=== PATIENT | female | born 1965 | race Caucasian/White ===

== ENCOUNTER 2024-04-07 14:12 | Outpatient (AMB) | payer MEDICAID, SELFPAY ==
--- NOTE | 2024-04-07 14:14 | A.OFFVIS_ITS ---
Vital Signs 04/07/24 14:16 Height 5 ft 7 in Weight 114 lb 3.191 oz BMI 17.9 BP 140/90 H Blood Pressure Location Rt brachial Position Sitting Pulse 89 Pulse Oximetry (%) 98 Intake Visit Reasons: Raynauds Intake Note: New patient, externally referred by Dr. Mack Juan, presents today for Raynaud's evaluation. Accompanied by: Self / Same As Patient HPI Comments Details: Ms. Valdovinos 58yoF presents for evaluation of chronic pain and Raynaud's. The patient says she has been having chronic pain to multiple joints for many years. She says she has been diagnosed and treated for fibromyalgia. She takes the medication but she always have the pain. --mom may have had Raynaud --dx poor circulation --arthritis, prolonged morning stiffness - cant' write , crotchet, sew anymore; feet is burning and stiff; movement causes cramping with stiffness ; denies swelling, redness and warmth. --has fibromyalgia --Medications amitriptyline, escitalopram, gabapentin 800 mg t.i.d., hydroxyzine, lidocaine 5% 2 patches, methocarbamol 500 mg bedtime, naproxen 500 mg b.i.d., tramadol 50 mg q.d. as needed --severe scoliosis --tips of finger gets blue when cold and feet gets 'discloured' --feels thirsty all the time; needs to moisten dry food. keeps water at bedside at night, On pepcid --eyes feel scratchy - three to four times per day eye drops; no mouth sores, fever, rashes, sun sensitivity. FOR[facility], [facility] Medical History (Updated 04/24/24 @ 12:[address] [facility]) Raynaud's syndrome Pain in joint involving multiple sites Irritable bowel syndrome with constipation Cervicalgia Essential (primary) hypertension Vitamin D deficiency, unspecified Polyneuropathy in diseases classified elsewhere Primary Raynaud's phenomenon Body mass index [BMI] 19.9 or less, adult Chronic pain syndrome History of incarceration Anxiety Depression PTSD (post-traumatic stress disorder) Suicide attempt Surgical History (Updated 03/31/24 @ 14:45 by JOSE J Pineda) History of surgical procedure on mouth Family History (Updated 04/07/24 @ 14:21 by JOSE J Pineda) Mother Heart problem High cholesterol Raynauds disease Arthritis Father No problems noted. Other Alcoholism Social History (Updated 04/07/24 @ 14:21 by JOSE J Pineda) Alcohol intake: current Alcohol intake frequency: former alcohol drinker Patient Tobacco Use Status: Never used Tobacco Current occupational status: disabled Review of Systems Const All systems reviewed & are unremarkable except as noted in HPI and below Physical Exam Vital Signs: Last Vital Signs Pulse 89 04/07/24 14:16 BP 140/90 H 04/07/24 14:16 Pulse Ox 98 04/07/24 14:16 BMI result Body Mass Index 17.9 Vital signs reviewed. Constitutional: Non-toxic appearing. No acute distress. Well-developed and well-nourished. HEENT: Normocephalic and atraumatic. External auditory canals without erythema or edema bilaterally. Moist mucous membranes. No pharyngeal erythema or exudates. Skin: Warm and dry. No rashes or lesions noted. No objective signs of Raynaud's Neck: Full and painless range of motion. No cervical lymphadenopathy. Cardio: Regular rate and rhythm. No murmurs, gallops, or rubs. No lower extremity edema. No JVD. Pulmonary: No respiratory distress. No accessory muscle usage. Gastrointestinal: Soft, nontender, and nondistended in all 4 quadrants. Normoactive bowel sounds in all 4 quadrants. Genitourinary: No CVA tenderness. Musculoskeletal: Normal range of motion in joints throughout the body. No deformity or other signs of injury. Multiple tender points and generalized, diffused joint tenderness. Neuro: Alert and oriented x4. Cranial nerves 2-12 grossly intact. No focal deficits appreciated. Assessment & Plan Assessment & Plan (1) Pain in joint involving multiple sites: Code(s): M25.50 - Pain in unspecified joint Category: Medical (2) Raynaud's syndrome: Code(s): I73.00 - Raynaud's syndrome without gangrene Category: Medical Qualifiers: Raynaud?s-associated gangrene presence: without gangrene Qualified Code(s): I73.00 - Raynaud's syndrome without gangrene Plan #Multiple joint pain and myalgia: I do not see a clinical presentation for inflammatory arthritis. 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 as needed. It is also likely that she has some osteoarthritis to hands and knees. I will obtain x-rays of hands and knees as she particularly has more complaint for those joints today. I discussed with the patient that the medications she is taking is a strong tool box for pain management and there are other methods we can use to support musculoskeletal health such as stretching, light activity, strengthening muscles. #Possible Raynaud's: Raynaud's can be primary or secondary as a feature of other CTD. I will do full rheum panel for further evaluation. However patient had no signs or symptoms of connective tissue disease process. I discussed with patient that Raynaud's is on the spectrum of mild to severe. The al thing is to keep her core warm and protect her fingers and toes and keep from exposure during cold weather. I think she said she does use hand warmers in the winter when needed. I spent 35 minutes reviewing chart, evaluating patient and documenting F/u 8 weeks to discuss findings Orders: Orders Erythrocyte Sedimentation Rate 04/07/24 M25.50 - Pain in unspecified joint FIDELIA Reflex Titer and Pattern 04/07/24 M25.50 - Pain in unspecified joint ANCA Vasculitides 04/07/24 M25.50 - Pain in unspecified joint Anti-Centromere B Antibodies 04/07/24 M25.50 - Pain in unspecified joint Anti DNA DS Antibody 04/07/24 M25.50 - Pain in unspecified joint Anti Extractable Nuclear Ag 04/07/24 M25.50 - Pain in unspecified joint Complement C3 04/07/24 M25.50 - Pain in unspecified joint Comprehensive Met. Panel 04/07/24 M25.50 - Pain in unspecified joint Immunofixation Pnl, Serum 04/07/24 M25.50 - Pain in unspecified joint Immunoglobulins,IgG IgA IgM 04/07/24 M25.50 - Pain in unspecified joint Thyroglobulin Antibodies 04/07/24 M25.50 - Pain in unspecified joint Lupus Anticoagulant Panel 04/07/24 M25.50 - Pain in unspecified joint Aldolase 04/07/24 M25.50 - Pain in unspecified joint Cyclic Citrullinated Peptide 04/07/24 M25.50 - Pain in unspecified joint Rheumatoid Factor 04/07/24 M25.50 - Pain in unspecified joint XR hand LT 2V 04/07/24 M25.50 - Pain in unspecified joint XR knee LT 3V 04/07/24 M25.50 - Pain in unspecified joint XR knee RT 3V 04/07/24 M25.50 - Pain in unspecified joint Complement C4 04/07/24 M25.50 - Pain in unspecified joint Complete Blood Count Auto Diff 04/07/24 M25.50 - Pain in unspecified joint C Reactive Protein 04/07/24 M25.50 - Pain in unspecified joint Creatine Kinase Total 04/07/24 M25.50 - Pain in unspecified joint Sjogren's Antibodies 04/07/24 M25.50 - Pain in unspecified joint Scleroderma 70 Antibody 04/07/24 M25.50 - Pain in unspecified joint Protein Electrophoresis, Serum 04/07/24 M25.50 - Pain in unspecified joint UA w Microscopic 04/07/24 M25.50 - Pain in unspecified joint Thyroid Peroxidase Antibodies 04/07/24 M25.50 - Pain in unspecified joint Thyroid Stimulating Hormone 04/07/24 M25.50 - Pain in unspecified joint Beta-2 Glycoprotein Antibody 04/07/24 M25.50 - Pain in unspecified joint Cardiolipin Antibodies 04/07/24 M25.50 - Pain in unspecified joint XR hand RT 2V 04/07/24 M25.50 - Pain in unspecified joint Coding Level of Care Code New Pt Level 4 (08484) Diagnoses Pain in joint involving multiple sites M25.50 Raynaud's disease without gangrene I73.00 Raynaud?s-associated gangrene presence: without gangrene
[2024-04-07 14:16] VITALS: BP 140/90; PULSE 89; O2SAT 98; BMI 17.9
== END 2024-04-07 15:22 | disposition home or self-care (01) ==
LOC: HO.RHE 14:12
PROVIDERS: PCP Internal Medicine; Referring Provider Internal Medicine; Visit Provider Nurse Practitioner Family
DX: M25.50 Pain in unspecified joint (principal); I73.00 Raynaud's syndrome without gangrene
CPT/HCPCS: 99204

== ENCOUNTER → 2024-04-07 14:12 | Outpatient (BNVA) | payer MEDICAID, SELFPAY | PROVIDERS: PCP Internal Medicine; Referring Provider Internal Medicine; Visit Provider Nurse Practitioner Family | DX: M25.50 Pain in unspecified joint (principal); I73.00 Raynaud's syndrome without gangrene; Z79.899 Other long term (current) drug therapy | CPT/HCPCS: 99212 ==